=== PATIENT | female | born 1990 | race Hispanic/Latino ===

== ENCOUNTER 2021-02-26 23:41 | Emergency (ER) | payer SELFPAY ==
[~2021-02-26] VITALS: Ht 157.5 cm; Wt 63.0 kg
[2021-02-27] MEDS ORDERED: AMOXICILLIN500 MG PO (01:43)
[2021-02-27] MEDS ORDERED: NAPROXEN500 MG PO (01:43)
[2021-02-27 04:57] VITALS: BP 110/72
== END 2021-02-27 02:47 | disposition home or self-care (01) | DRG 605 ==
LOC: ED 23:41
DX: S61.250A Open bite of right index finger without damage to nail, initial encounter (principal); S00.83XA Contusion of other part of head, initial encounter; F10.10 Alcohol abuse, uncomplicated; Y04.1XXA Assault by human bite, initial encounter; Y04.2XXA Assault by strike against or bumped into by another person, initial encounter; Y92.39 Other specified sports and athletic area as the place of occurrence of the external cause